=== PATIENT | female | born 1970 | race Caucasian/White ===

== ENCOUNTER 2018-06-18 20:32 | Emergency (ER) | payer MEDICAID ==
[2018-06-19 01:20] LABS: APPEARANCE,URINE SLIGHTLY-CLOUDY; BILIRUBIN,URINE NEGATIVE (NEGATIVE); COLOR,URINE YELLOW; GLUCOSE, URINE NEGATIVE (NEGATIVE); KETONES,URINE NEGATIVE (NEGATIVE); LEUKOCYTE ESTERASE,URINE NEGATIVE (NEGATIVE); NITRITE,URINE NEGATIVE (NEGATIVE); PROTEIN,URINE NEGATIVE (NEGATIVE); URINE SPECIFIC GRAVITY 1.028; UROBILINOGEN,URINE NEGATIVE mg/dL (<2.0)
--- NOTE | 2018-06-19 01:43 | ER Document Report ---
Addendum entered and electronically signed by DAVID HUTCHINSON PA-C 06/19/18 01:58: Discharge - Discharge Clinical Impression: Eye irritation Condition: Good Disposition: HOME, SELF-CARE Instructions: Antibiotic Therapy ([facility]), Conjunctivitis ([facility]) Additional Instructions: I believe you have a little bit of allergic conjunctivitis with anything else. It is causing the itching of the eyes. You can get osvm-wem-fiepwmf Opcon-A eyedrops which are probably the best thing you can find on the market and they are njbl-fyv-bbfzzqx at [facility] and any other pharmacies. follow directions on the back of 4 applications. This will help get rid of the itching for you. Should you have any other concerns or problems return to ER. I am also giving the name of the transportation solutions manager is iphone developer leonor Earl he may contact his office to see if he can accommodate you. Prescriptions: Olopatadine HCl [Patanol 0.1% Oph Soln 5 ml] 100 drop OP BID PRN #1 bottle PRN Reason: Forms: Elevated Blood Pressure Referrals: PATRICIA EARL DO [ACTIVE STAFF] - Follow up as needed Original Note: ED General - General Chief Complaint: Eye Problem Stated Complaint: EYE PAIN Time Seen by Provider: 06/19/18 00:41 Mode of Arrival: Ambulatory Information source: Patient Notes: Patient is a 47-year-old female comes to emergency room 2 complaints. First complaint is onset of eye itching for the past 3 days. Patient states she been using some of the medications antibiotic eyedrops she had about 6 months ago has not seem to work. She does also state that she wears contact lenses. She has been using the contact lenses all the time. She denies any known injuries. She believes that its allergies. She is not taking anything gyjq-ddq-elkhzvq for any type of antihistamine. Patient also complains that other symptoms of started about the same time the eyes did not and that is she has had some vaginal discomfort with a slight discharge that appeared to be somewhat bloody. She denies having any problems but does state that her and her partner have been together for quite a while so she does not believe there is any chance for STD. She denies any medication use like antibiotics that we wait about the natural for she also does not use any creams or lotions or sprays in the area. Patient decides before we go to for that she does not want this area checked out tonight but would like to make sure she does not have a urinary tract infection. TRAVEL OUTSIDE OF THE [place] IN LAST 30 DAYS: No - HPI Onset: Other - 2 days Onset/Duration: Sudden, Persistent, Worse Quality of pain: Achy, Burning, Other - Itchy Severity: Moderate Pain Level: 3 Associated symptoms: Allergy/hay fever Exacerbated by: Denies Relieved by: Denies Recently seen / treated by doctor: No - Related Data Allergies/Adverse Reactions: No Known Drug Allergies Allergy (Verified 06/18/18 20:35) Past Medical History - General Information source: Patient - Social History Smoking Status: Unknown if Ever Smoked Cigarette use (# per day): No Chew tobacco use (# tins/day): No Smoking Education Provided: No Frequency of alcohol use: Rare Drug Abuse: None Lives with: Family Family History: Reviewed & Not Pertinent Patient has suicidal ideation: No Patient has homicidal ideation: No Renal/ Medical History: Denies: Hx Peritoneal Dialysis Physical Exam - Vital signs Vitals: Temp Pulse Resp BP Pulse Ox 98.1 F 83 16 135/83 H 96 06/18/18 21:18 06/18/18 21:18 06/18/18 21:18 06/18/18 21:18 06/18/18 21:18 Interpretation: Normal, Hypertensive - Notes Notes: PHYSICAL EXAMINATION: GENERAL: Well-appearing, well-nourished and in no acute distress. HEAD: Atraumatic, normocephalic. EYES: Pupils equal round and reactive to light, extraocular movements intact, conjunctiva are normal. Further examination of the eyes with forcing stain and [place] lamp after contact lens was removed does not show any sign of corneal abrasions or foreign bodies there is no uptake of floor seen anywhere that I can find. There does appear to be some irritation of the conjunctiva however nothing more than that at this point so it does appear to be some type of an allergic reaction. ENT: Nares patent, oropharynx clear without exudates. Moist mucous membranes. NECK: Normal range of motion, supple without lymphadenopathy LUNGS: Breath sounds clear to auscultation bilaterally and equal. No wheezes rales or rhonchi. HEART: Regular rate and rhythm without murmurs ABDOMEN: Soft, nontender, nondistended abdomen. No guarding, no rebound. No masses appreciated. Female : deferred Musculoskeletal: Normal range of motion, no pitting or edema. No cyanosis. NEUROLOGICAL: Normal speech, normal gait. Normal sensory, motor exams PSYCH: Normal mood, normal affect. SKIN: Warm, Dry, normal turgor, no rashes or lesions noted. Course - Re-evaluation Re-evalutation: 06/19/18 01:43 Patient urine came back negative as well. At this point going to treat her for an allergic reaction type of thing with her eyes will place her on - Vital Signs Vital signs: Temp Pulse Resp BP Pulse Ox 98.1 F 83 16 135/83 H 96 06/18/18 21:18 06/18/18 21:18 06/18/18 21:18 06/18/18 21:18 06/18/18 21:18 Discharge - Discharge Clinical Impression: Eye irritation Condition: Good Disposition: HOME, SELF-CARE Instructions: Antibiotic Therapy ([facility]), Conjunctivitis ([facility]) Additional Instructions: I believe you have a little bit of allergic conjunctivitis with anything else. It is causing the itching of the eyes. You can get izeg-uim-qhbfogq Opcon-A eyedrops which are probably the best thing you can find on the market and they are rujw-twn-xmkkpyx at [facility] [employer] and any other pharmacies. follow directions on the back of 4 applications. This will help get rid of the itching for you. Should you have any other concerns or problems return to ER. I am also giving the name of the transportation solutions manager is iphone developer leonor Earl he may contact his office to see if he can accommodate you. Forms: Elevated Blood Pressure Referrals: PATRICIA EARL DO [ACTIVE STAFF] - Follow up as needed
[2018-06-19 01:49] VITALS: BP 134/72
== END 2018-06-19 01:59 | disposition home or self-care (01) ==
LOC: ER 20:32
DX: H57.89 Other specified disorders of eye and adnexa (principal); R10.2 Pelvic and perineal pain
CPT/HCPCS: 81001; 99283